=== PATIENT | female | born 1955 | race Caucasian/White ===

== ENCOUNTER 2017-03-25 06:27 | Emergency (ER) | payer OTHER ==
[~2017-03-25] VITALS: Ht 160 cm; Wt 70.5 kg
[~2017-03-25 06:27] MED LIST: ASPIRIN 81M81 MG/TA2 PO; CLIMARA 0.1 PATCH.WK TD; VITAMIN D 400400 IU PO
[2017-03-25 07:31] LABS: EOS % 1.1 % (0-4.0); GRAN # 1.7 (1.4-6.5); GRAN % 60.2 % (42.2-75.2); HEMATOCRIT 41.9 % (37.0-47.0); HEMOGLOBIN 14.1 g/dl (12.5-16.0); LYMPH # 0.6 (1.2-3.4); LYMPH % 19.9 % (20.0-51.0); MEAN CELL VOLUME 92 fl (80.0-100.0); MEAN CORPUSCULAR HEMOGLOBIN 31 pg (27.0-31.0); MEAN CORPUSCULAR HGB CONC 34 g/dl (33.0-37.0); MEAN PLATELET VOLUME 11.9 fl (7.4-10.4); MONO # 0.5 (0.1-0.6); MONO % 18.4 % (1.7-9.3); PLATELET COUNT 127 K/mm3 (130-400); RED BLOOD COUNT 4.55 M/mm3 (4.10-5.30)
[2017-03-25 07:32] LABS: COLLECTION METHOD CLEAN CATCH
[2017-03-25 07:39] LABS: MUCOUS Present /lpf; PH 6 (5-8); SQUAMOUS EPITHELIAL 0-2 /hpf; URINE APPEARANCE Clear; URINE BACTERIA None Seen /hpf; URINE BILIRUBIN Negative (NEGATIVE); URINE BLOOD 2+ (NEGATIVE); URINE COLOR Yellow; URINE GLUCOSE Negative (NEGATIVE); URINE KETONE 1+ (NEGATIVE); URINE LEUKOCYTE ESTERASE Negative (NEGATIVE); URINE NITRATE Negative (NEGATIVE); URINE PROTEIN(semi-quant) Negative (NEGATIVE); URINE RBC 0-2 /hpf; URINE UROBILINOGEN Negative (NEGATIVE)
[2017-03-25 07:46] LABS: ALBUMIN 4.2 gm/dL (3.5-5.0); BILIRUBIN,TOTAL 0.4 mg/dL (0.0-1.0); CALCIUM 8.9 mg/dL (8.4-10.2); CREATININE, serum 0.71 mg/dL (0.52-1.25); POTASSIUM 3.7 mmol/L (3.4-5.0); TOTAL PROTEIN 7.1 gm/dL (6.4-8.2)
[2017-03-25 07:50] LABS: INFLUENZA A NEGATIVE
[2017-03-25 08:16] LABS: INFLUENZA B POSITIVE
[2017-03-25 08:24] VITALS: BP 105/65; PULSE 77; TEMP 97.4
== END 2017-03-25 08:23 | disposition home or self-care (01) ==
LOC: COL.ER 06:27
PROVIDERS: Family Medicine
DX: J11.1 Influenza due to unidentified influenza virus with other respiratory manifestations (principal); B34.9 Viral infection, unspecified; E86.0 Dehydration
CPT/HCPCS: J7030

== ENCOUNTER 2019-10-21 16:59 | Emergency (ER) | payer BC ==
[~2019-10-21] VITALS: Ht 160 cm; Wt 66.4 kg
[2019-10-21 17:08] VITALS: BP 99/68; PULSE 76; TEMP 98.3
== END 2019-10-21 19:00 | disposition home or self-care (01) ==
LOC: COL.ER 16:59
DX: S62.317A Displaced fracture of base of fifth metacarpal bone, left hand, initial encounter for closed fracture (principal); F17.210 Nicotine dependence, cigarettes, uncomplicated; Z90.710 Acquired absence of both cervix and uterus; Z88.2 Allergy status to sulfonamides; Z79.82 Long term (current) use of aspirin; W22.8XXA Striking against or struck by other objects, initial encounter